=== PATIENT | male | born 1955 | race Caucasian/White ===

== ENCOUNTER 2025-06-08 22:22 | Emergency (ER) | payer OTHER, MEDICARE ==
[2025-06-09] MEDS ORDERED: LIDOCAINE HCL/EPINEPHRINE 50 ML VIAL ONE (01:13)
== END 2025-06-09 02:49 | disposition left against medical advice (07) ==
LOC: ED 22:22
DX: S22.41XA Multiple fractures of ribs, right side, initial encounter for closed fracture (principal); S27.0XXA Traumatic pneumothorax, initial encounter; S01.81XA Laceration without foreign body of other part of head, initial encounter; S60.512A Abrasion of left hand, initial encounter; S60.511A Abrasion of right hand, initial encounter; S30.811A Abrasion of abdominal wall, initial encounter; M54.2 Cervicalgia; M25.511 Pain in right shoulder; V20.49XA Other motorcycle driver injured in collision with pedestrian or animal in traffic accident, initial encounter; Y93.I9 Activity, other involving external motion; Y92.488 Other paved roadways as the place of occurrence of the external cause; Y99.8 Other external cause status